=== PATIENT | male | born 1960 | race Caucasian/White ===

== ENCOUNTER 2019-07-19 11:30 | Emergency (ER) | payer BC ==
[2019-07-19 13:00] VITALS: BP 149/91
--- NOTE | 2019-07-19 13:12 | UC ---
Skin Complaint HPI - HPI Summary HPI Summary: 59 yo male felt a sting last pm while in bed now swelling and pain (mild itch) Heading to [place] no hx MRSA - History of Current Complaint Chief Complaint: UCUpperExtremity Time Seen by Provider: 07/19/19 12:48 Stated Complaint: BITE ON L ARM Hx Obtained From: Patient Onset/Duration: Sudden Onset, Lasting Hours Timing: Constant Onset Severity: Mild Current Severity: Moderate Pain Intensity: 0 Pain Scale Used: 0-10 Numeric Location: Discrete Character: Swelling, Pruritus - mild, Redness Aggravating Factor(s): Touch Alleviating Factor(s): Nothing Associated Signs & Symptoms: Positive: Tenderness - Allergy/Home Medications Allergies/Adverse Reactions: Allergies Allergy/AdvReac Type Severity Reaction Status Date / Time piperacillin [From Zosyn] Allergy See Comment Verified 07/19/19 12:56 tazobactam [From Zosyn] Allergy See Comment Verified 07/19/19 12:56 vancomycin Allergy See Comment Verified 07/19/19 12:56 Home Medications: Home Medications Colchicine* [Colcrys*] 0.6 mg PO DAILY PRN 07/19/19 [History Confirmed 07/19/19] Levothyroxine TAB* [Synthroid TAB*] 75 mcg PO 0800 07/19/19 [History Confirmed 07/19/19] Testosterone Cypionate 200 mg IM SEE INSTRUCTIONS 07/19/19 [History Confirmed ] PMH/Surg Hx/FS Hx/Imm Hx Previously Healthy: Yes - gout Cardiovascular History: Hypertension - Surgical History Surgery Procedure, Year, and Place: knee replacement - Family History Known Family History: Positive: Hypertension - Social History Alcohol Use: None Substance Use Type: None Smoking Status (MU): Never Smoked Tobacco Review of Systems All Other Systems Reviewed And Are Negative: Yes Constitutional: Positive: Negative Skin: Positive: Other - red/swollen left arm Eyes: Positive: Negative ENT: Positive: Negative Respiratory: Positive: Negative Cardiovascular: Positive: Negative Gastrointestinal: Positive: Negative Genitourinary: Positive: Negative Motor: Positive: Negative Neurovascular: Positive: Negative Musculoskeletal: Positive: Negative Neurological: Positive: Negative Psychological: Positive: Negative Physical Exam Triage Information Reviewed: Yes Appearance: Well-Appearing, No Pain Distress, Well-Nourished Vital Signs: Initial Vital Signs Temp 98.2 F 07/19/19 12:56 Pulse 68 07/19/19 12:56 Resp 16 07/19/19 12:56 BP 149/91 07/19/19 12:56 Pulse Ox 100 07/19/19 12:56 Vital Signs Reviewed: Yes Eyes: Positive: Conjunctiva Clear ENT: Positive: Hearing grossly normal. Negative: Pharyngeal erythema, Nasal congestion, Nasal drainage, Trismus, Muffled voice, Hoarse voice Neck: Positive: Supple, Nontender, No Lymphadenopathy Respiratory: Positive: Lungs clear, Normal breath sounds, No respiratory distress Cardiovascular: Positive: RRR, No Murmur Musculoskeletal: Positive: ROM Intact, No Edema Neurological: Positive: Alert Psychological Exam: Normal Skin Exam: Other - see image Images Front/Back of Body, Lg ([place]): 1 - red/indurated/not flutuant Course/Dx - Diagnoses Provider Diagnosis: Insect sting Discharge ED - Sign-Out/Discharge Documenting (check all that apply): Patient Departure All imaging exams completed and their final reports reviewed: No Studies - Discharge Plan Condition: Stable Disposition: HOME Prescriptions: Cephalexin CAP* [Keflex CAP*] 500 mg PO QID #28 cap predniSONE TAB* [Deltasone 20 MG TAB*] 40 mg PO DAILY #8 tab Patient Education Materials: Insect Bite or Sting (ED) Referrals: Pola Rodriguez MD [Primary Care Provider] - - Billing Disposition and Condition Condition: STABLE Disposition: Home
[2019-07-19] MEDS ORDERED: predniSONE TAB* 20 MG PO ONE (13:15)
== END 2019-07-19 13:25 | disposition home or self-care (01) ==
LOC: UCCORT 11:30
DX: S40.862A Insect bite (nonvenomous) of left upper arm, initial encounter (principal); M10.9 Gout, unspecified; I10 Essential (primary) hypertension; Z88.0 Allergy status to penicillin; Z88.8 Allergy status to other drugs, medicaments and biological substances; Z88.1 Allergy status to other antibiotic agents; Z79.899 Other long term (current) drug therapy; W57.XXXA Bitten or stung by nonvenomous insect and other nonvenomous arthropods, initial encounter; Y92.9 Unspecified place or not applicable
CPT/HCPCS: 99212; G0463; J7512